=== PATIENT | male | born 1985 | race American Indian/Alaskan Native ===

== ENCOUNTER 2018-04-01 07:03 | Day surgery (SDC) | payer MEDICARE, MEDICAID ==
[2018-03-29 14:23] VITALS: BMI 53.2
--- NOTE | 2018-04-01 08:08 | CP.SDSHP ---
Same Day Surgery H & P - History Proposed Procedure: COLONSCOPY Pre-Op Diagnosis: N - Previous Medical/Surgical History Cardiac: Hypertension Pulmonary: Asthma Endocrine/Metabolic: Other Misc: Other - Allergies Allergies: Allergies No Known Allergies Allergy (Verified 04/01/18 06:46) - Physical Exam General Appearance: N Vital Signs: Vital Signs 04/01/18 07:30 Temperature 97.5 F L Pulse Rate 97 H Respiratory 18 Rate Blood Pressure 129/61 O2 Sat by Pulse 98 Oximetry Mental Status: Alert & Oriented x3 Neuro: WNL GI: WNL - {Optional Preform as Required} Breast: WNL Abdomen: Other Rectal: Other Integument: WNL : WNL Ortho: Other ENT: WNL - Impression Pt. Evaluated Today:Candidate for Anesthesia & Procedure: Yes - Date & Time Time: 08:08 Short Stay Discharge - Short Stay Discharge Admitting Diagnosis/Reason for Visit: HEMORRHAGE OF ANUS AND RECTUM Disposition: HOME/ ROUTINE
[2018-04-01] MEDS ORDERED: Lactated Ringer's 1,000 ML IV ONE (08:10)
[2018-04-01] MEDS ORDERED: Midazolam 2 MG/2 ML VIAL ONE (08:13)
[2018-04-01] MEDS ORDERED: Lactated Ringer's 500 ML IV SCH (08:15)
[2018-04-01] MEDS ORDERED: Propofol 10 mg/ml Inj (20 ML) ONE (08:43)
[2018-04-01] MEDS ORDERED: Belladonna-Phenobarbital PO ONE (09:00)
[2018-04-01 09:01] VITALS: O2SAT 99
[2018-04-01 09:38] VITALS: PULSE 88; RESP 14
[2018-04-01 10:56] VITALS: BP 117/60; TEMP 97.2
== END 2018-04-01 09:55 | disposition home or self-care (01) ==
LOC: C.ENDO 07:03
PROVIDERS: ATTEND Specialist
DX: K62.5 Hemorrhage of anus and rectum (principal); R19.7 Diarrhea, unspecified; K60.2 Anal fissure, unspecified; K64.8 Other hemorrhoids
CPT/HCPCS: 45380; 88305; J2250; J2704; J7120

== ENCOUNTER 2018-11-25 17:45 | Emergency (ER) | payer MEDICARE, MEDICAID ==
[2018-03-29 14:23] VITALS: BMI 53.2
[2018-11-25] MEDS ORDERED: Sodium Chloride 0.9% 1,000 ML IV STA (18:07)
[2018-11-25] MEDS ORDERED: Iohexol 240 (50 ml) PO STA (18:07)
--- NOTE | 2018-11-25 18:34 | C.PDOC ---
History Of Present Illness Patient is a 33 year old male who presents to the ED c/o periumbilical abdominal pain for the past 3 days. She denies any fever, chills, vomiting, diarrhea, or urinary symptoms. Time Seen by Provider: 11/25/18 18:01 Chief Complaint (Nursing): Abdominal Pain History Per: Patient History/Exam Limitations: no limitations Onset/Duration Of Symptoms: Days (3) Current Symptoms Are (Timing): Still Present Location Of Pain/Discomfort: Periumbilical Quality Of Discomfort: "Pain" Associated Symptoms: denies: Vomiting, Diarrhea, Urinary Symptoms Recent travel outside of the [place]: No Additional History Per: Patient Past Medical History Reviewed: Historical Data, Nursing Documentation, Vital Signs Vital Signs: Last Vital Signs Temp 98.6 F 11/25/18 17:51 Pulse 110 H 11/25/18 17:51 Resp 20 11/25/18 17:51 BP 124/77 11/25/18 17:51 Pulse Ox 99 11/25/18 17:51 Primary Care Provider: Kuldeep Reese Medical History PMH: Asthma, Gastritis, HTN, Hypercholesterolemia Denies: Colonic Polyps, Fractures, Chronic Kidney Disease, Seizures, TIA Surgical History: Endoscopy Family History: States: No Known Family Hx - Social History Hx Alcohol Use: No Hx Substance Use: No Review Of Systems Except As Marked, All Systems Reviewed And Found Negative. Constitutional: Negative for: Fever, Chills Gastrointestinal: Positive for: Abdominal Pain (periumbilical). Negative for: Vomiting, Diarrhea Genitourinary: Negative for: Dysuria, Frequency, Hematuria Physical Exam - Physical Exam Appears: Non-toxic, No Acute Distress, Other (morbidly obese) Skin: Normal Color, Warm, Dry Head: Atraumatic, Normacephalic Oral Mucosa: Moist Neck: Normal ROM, Supple Chest: Symmetrical, No Deformity Cardiovascular: Rhythm Regular, No Murmur Respiratory: Normal Breath Sounds, No Rales, No Rhonchi, No Wheezing Gastrointestinal/Abdominal: Soft, Tenderness (mild periumbilical tenderness mostly LLQ), No Distention Neurological/Psych: Oriented x3, Normal Speech ED Course And Treatment O2 Sat by Pulse Oximetry: 99 (on RA) Pulse Ox Interpretation: Normal Progress Note: Plan: CAT A&P. Labs. UA. IV Fluids. Transfer of care to Dr. Malik. Pending Labs, CT, and reevaluation. Disposition - Disposition Disposition Time: 19:00 Condition: FAIR Forms: [employer] (Cam[place]onian) - Clinical Impression Clinical Impression: Abdominal pain - PA / LOAD CHECKER / Resident Statement MD/DO has examined the patient and agrees with the treatment plan. - Scribe Statement The provider has reviewed the documentation as recorded by the Juanaibshelby Dawkins All medical record entries made by the Scribe were at my direction and personally dictated by me. I have reviewed the chart and agree that the record accurately reflects my personal performance of the history, physical exam, medical decision making, and the department course for this patient. I have also personally directed, reviewed, and agree with the discharge instructions and disposition. Physician Patient Turnover Patient Signed Over To: Ines Malik Handoff Comments: Pending labs and CT abdomen/pelvis
[2018-11-25] MEDS ORDERED: Sodium Chloride 0.9% 1,000 ML ONE (19:03)
[2018-11-25] MEDS ORDERED: Iohexol 240 (50 ml) ONE (19:03)
[2018-11-25 19:06] LABS: SQUAMOUS EPITHIAL < 1 /hpf (0-5); URINE BACTERIA FEW (<OCC); URINE BILIRUBIN NEGATIVE (NEGATIVE); URINE BLOOD NEGATIVE (NEGATIVE); URINE CLARITY Clear (Clear); URINE COLOR Yellow (YELLOW); URINE GLUCOSE (UA) NORMAL (Normal); URINE LEUKOCYTE ESTERASE 2+ Leu/uL (Negative); URINE PROTEIN NEGATIVE (NEGATIVE)
[2018-11-25 19:21] LABS: BASO # 0.1 K/uL (0.0-0.2); EOS # 0.1 K/uL (0.0-0.7); EOS % 0.9 % (0.0-4.0); HEMOGLOBIN 12.1 g/dL (12.0-18.0); LYMPH # 2.6 K/uL (1.0-4.3); LYMPH % 26.8 % (20.0-40.0); MEAN CELL VOLUME 89.9 fL (80.0-94.0); MEAN CORPUSCULAR HGB CONC 33.3 g/dL (33.0-37.0); MEAN PLATELET VOLUME 8.2 fL (7.2-11.7); MONO # 0.5 K/uL (0.0-0.8); MONO % 5.5 % (0.0-10.0); NEUT # 6.3 K/uL (1.8-7.0); NEUT % 65.8 % (50.0-75.0); NRBC % 0.1 % (0.0-2.0); RBC 4.05 Mil/uL (4.40-5.90); RED CELL DISTRIBUTION WIDTH 14.5 % (11.5-14.5); WHITE BLOOD COUNT 9.6 K/uL (4.8-10.8)
[2018-11-25 19:33] LABS: ALB/GLOB RATIO 1.1 (1.0-2.1); ALBUMIN 4.3 g/dL (3.5-5.0); ALT/SGPT 50 U/L (21-72); AST/SGOT 47 U/L (17-59); BLOOD UREA NITROGEN 16 mg/dL (9-20); CALCIUM 9.8 mg/dl (8.6-10.4); GFR NON-AFRICAN AMERICAN > 60; LIPASE 129 U/L (23-300)
[2018-11-25] MEDS ORDERED: Iodixanol 320 MG/ML 100 ML BOTTLE IV ONE (21:00)
[2018-11-25] MEDS ORDERED: cefTRIAXone 250 MG, Lidocaine Hydrochloride 1% 1 ML IM ONE (22:36)
[2018-11-25 23:33] VITALS: BP 130/69; PULSE 71; RESP 16; TEMP 98; O2SAT 100
--- NOTE | 2018-11-26 09:12 | CT ---
Date of service: 11/25/2018 PROCEDURE: CT Abdomen and Pelvis with contrast HISTORY: LLQ abd pain COMPARISON: None available. TECHNIQUE: CT scan of the abdomen and pelvis was performed after administration of intravenous contrast. Oral contrast was administered. Coronal and sagittal reformatted images were obtained. Contrast dose: 100 mL Visipaque 320 Radiation dose: Total exam DLP = 1386.21 mGy-cm. This CT exam was performed using one or more of the following dose reduction techniques: Automated exposure control, adjustment of the mA and/or kV according to patient size, and/or use of iterative reconstruction technique. FINDINGS: LOWER THORAX: The visualized lungs are clear. LIVER: Mild hepatomegaly. Homogeneous enhancement. No gross lesion or ductal dilatation. GALLBLADDER AND BILE DUCTS: Well distended. No calcified gallstones, wall thickening or pericholecystic fluid. PANCREAS: Normal in size with homogeneous enhancement. No gross lesion or ductal dilatation. SPLEEN: Normal in size and appearance. ADRENALS: No discrete nodule. KIDNEYS AND URETERS: Normal in size with homogeneous enhancement. No hydronephrosis. No solid mass. VASCULATURE: No aortic aneurysm. There are no aortic atherosclerotic calcifications or mural plaque present. BOWEL: The small bowel loops are normal in caliber. The colon is grossly normal in appearance. No bowel wall thickening or obstruction. APPENDIX: Normal appendix. PERITONEUM: No free fluid. No free air. LYMPH NODES: No enlarged lymph nodes. BLADDER: Well distended and normal in appearance. REPRODUCTIVE: The prostate gland is normal in size. BONES: No acute fracture. Within normal limits for the patient's age. OTHER FINDINGS: There is a small fat containing umbilical hernia. There is a small hiatal hernia. IMPRESSION: No acute abdominal or pelvic abnormality. Mild hepatomegaly. A preliminary report was provided by [facility].
== END 2018-11-25 23:33 | disposition home or self-care (01) ==
LOC: C.ER 17:45
DX: R10.33 Periumbilical pain (principal); E78.00 Pure hypercholesterolemia, unspecified; I10 Essential (primary) hypertension
CPT/HCPCS: 74177; 80053; 81001; 83605; 83690; 85025; 96372; 96374; 99285; J0696; J1885; J7030; Q9966; Q9967